=== PATIENT | male | born 2000 | race Two or more races ===

== ENCOUNTER 2020-03-05 22:27 | Emergency (ER) | payer MEDICAID, OTHER ==
[~2020-03-05] VITALS: Ht 180.3 cm; Wt 127.0 kg
[2020-03-06 03:16] VITALS: BP 126/64
== END 2020-03-06 03:21 | disposition home or self-care (01) ==
LOC: ER 22:30
DX: S43.402A Unspecified sprain of left shoulder joint, initial encounter (principal); S80.02XA Contusion of left knee, initial encounter; R07.89 Other chest pain; V89.2XXA Person injured in unspecified motor-vehicle accident, traffic, initial encounter; Y93.89 Activity, other specified; Y92.89 Other specified places as the place of occurrence of the external cause; Y99.8 Other external cause status
CPT/HCPCS: 71250; 73000; 73562